=== PATIENT | male | born 1965 | race Hispanic/Latino ===

== ENCOUNTER 2022-04-09 07:14 | Emergency (ER) | payer OTHER ==
[~2022-04-09] VITALS: Ht 162.6 cm; Wt 74.4 kg
[2022-04-09 07:15] VITALS: BP 141/82
[2022-04-09] MEDS ORDERED: LINA72CA PO (07:41)
== END 2022-04-09 07:54 | disposition home or self-care (01) ==
LOC: EDH 07:14
DX: K59.01 Slow transit constipation (principal)

== ENCOUNTER 2022-09-24 05:36 | Emergency (ER) | payer OTHER ==
[~2022-09-24] VITALS: Ht 162.6 cm; Wt 75.7 kg
[~2022-09-24 05:36] MED LIST: LINA72CA PO
[2022-09-24 09:43] LABS: BASOPHILS % (AUTO) 0.3 % (0.0-5.0); EOSINOPHILS % (AUTO) 3.4 % (0.0-8.0); HEMATOCRIT 43.8 % (42-54); LYMPHOCYTES % (AUTO) 28.1 % (21.0-51.0); MEAN CORPUSCULAR HEMOGLOBIN 31.4 pg (27.0-33.0); MEAN CORPUSCULAR HGB CONC 33.6 g/dL (32.0-36.0); MEAN CORPUSCULAR VOLUME 93.6 fL (79-99); MONOCYTES % (AUTO) 9.3 % (3.0-13.0); NEUTROPHILS % (AUTO) 58.7 % (40.0-77.0); PLATELET COUNT (AUTO) 192 K/uL (130-400); RED BLOOD CELL COUNT(AUTO) 4.68 MIL/uL (4.50-6.20); RED CELL DISTRIBUTION WIDTH 12.8 % (11.0-15.5); WHITE BLOOD COUNT (AUTO) 6.2 K/uL (4.8-10.8)
[2022-09-24 09:49] VITALS: BP 111/73
[2022-09-24 09:58] LABS: CREATININE 0.6 mg/dL (0.5-1.5); POTASSIUM 4.2 mmol/L (3.5-5.1)
[2022-09-24 10:03] LABS: ALBUMIN 3.8 g/dL (3.5-5.0); TOTAL PROTEIN, SERUM 7.3 g/dL (6.0-8.3)
[2022-09-24 10:04] LABS: PROTHROMBIN TIME 10.9 SEC (9.6-11.6)
[2022-09-24 10:05] LABS: PARTIAL THROMBOPLASTIN TIME 28.8 SEC (26.3-35.5)
== END 2022-09-24 10:40 | disposition home or self-care (01) ==
LOC: EDH 05:36
DX: S71.112A Laceration without foreign body, left thigh, initial encounter (principal); S30.0XXA Contusion of lower back and pelvis, initial encounter; M79.605 Pain in left leg; J45.909 Unspecified asthma, uncomplicated; X58.XXXA Exposure to other specified factors, initial encounter; Y93.89 Activity, other specified; Y92.89 Other specified places as the place of occurrence of the external cause; Y99.8 Other external cause status
CPT/HCPCS: 36415; 72190; 80053; 85025; 85610; 85730; 93971